=== PATIENT | male | born 1955 | race Two or more races ===

== ENCOUNTER → 2016-06-03 | Outpatient (REF) | payer OTHER ==
[2016-06-03 18:58] LABS: MEAN CORPUSCULAR HEMOGLOBIN 31.3 pg (27.0-33.0); MEAN CORPUSCULAR HGB CONC 34.6 g/dl (32.0-36.5); MEAN CORPUSCULAR VOLUME 90.5 fl (80.0-96.0); RED CELL DISTRIBUTION WIDTH 12.1 % (11.5-14.5); WHITE BLOOD COUNT 6.8 K/mm3 (4.0-10.0)
[2016-06-03 19:05] LABS: ALBUMIN 4.2 GM/DL (3.2-5.2); ALBUMIN/GLOBULIN RATIO 1.08 (1.00-1.93); ALKALINE PHOSPHATASE 113 U/L (45-117); ALT/SGPT 73 U/L (12-78); ANION GAP 7 MEQ/L (8-16); AST/SGOT 37 U/L (15-37); BILIRUBIN,TOTAL 0.6 MG/DL (0.2-1.0); BLOOD UREA NITROGEN 17 MG/DL (7-18); CARBON DIOXIDE LEVEL 28 MEQ/L (21-32); CHLORIDE LEVEL 102 MEQ/L (98-107); CREATININE FOR GFR 1.07 MG/DL (0.70-1.30); GLOMERULAR FILTRATION RATE > 60.0 (>56); GLUCOSE, FASTING 312 MG/DL (70-105); POTASSIUM SERUM 4.6 MEQ/L (3.5-5.1); SODIUM LEVEL 137 MEQ/L (136-145); TOTAL PROTEIN 8.1 GM/DL (6.4-8.2)
== END ==
LOC: M SFHCLERA 17:25
PROVIDERS: ATTEND Physician Assistant
DX: R35.0 Frequency of micturition (principal); E11.9 Type 2 diabetes mellitus without complications

== ENCOUNTER 2020-09-13 07:32 | Emergency (ER) | payer SELFPAY ==
[2020-09-13] MEDS ORDERED: METF10004 (07:45)
[2020-09-13 08:07] LABS: BASO % 0.4 % (0.0-1.0); EOS # 0.3 10^3/uL (0.0-0.5); EOS % 5.3 % (0.0-3.0); HEMOGLOBIN 13.5 g/dl (13.5-17.5); LYMPH # 1.7 10^3/uL (1.5-5.0); LYMPH % 32.1 % (24.0-44.0); MEAN CORPUSCULAR HEMOGLOBIN 31.3 pg (27.0-33.0); MEAN CORPUSCULAR HGB CONC 34.6 g/dl (32.0-36.5); MEAN CORPUSCULAR VOLUME 90.5 fl (80.0-96.0); MONO # 0.5 10^3/uL (0.0-0.8); MONO % 9.8 % (2.0-8.0); NEUTROPHILS # 2.8 10^3/uL (1.5-8.5); NEUTROPHILS % 51.6 % (36.0-66.0); PLATELET COUNT, AUTOMATED 189 10^3/uL (150-450); RED BLOOD COUNT 4.31 10^6/uL (4.30-6.10); WHITE BLOOD COUNT 5.3 10^3/uL (4.0-10.0)
[2020-09-13] MEDS ORDERED: GI COCKTAIL 50ML BTL(HYOSCYAMINE/MAALOX/LIDOCAINE VISCOUS)(1:3:1) PO ONE (08:20)
--- NOTE | 2020-09-13 08:34 | REP ---
INDICATION: CHEST PAIN. COMPARISON: None. TECHNIQUE: AP lateral seated, lordotic FINDINGS: Lungs are adequately inflated. There is no dense consolidation, definite effusion or parenchymal mass. Diaphragms are well seen bilaterally. Some minor fibrotic changes. Heart size not enlarged for AP portable lordotic technique. Some venous hypertension without pulmonary edema. No pneumothorax. The aorta is mildly tortuous. Airway intact. No widening of the mediastinum. Degenerative changes spine and shoulders. No free air. the the IMPRESSION: 1. No definite infiltrate, pleural effusion parenchymal mass. Some underlying fibrosis and there is pulmonary venous hypertension without interstitial edema. 2. No gross cardiomegaly. Some degenerative changes in the spine and shoulders. <Electronically signed by Pascual Lobato > 09/13/20 [id number]
[2020-09-13 08:55] LABS: ALBUMIN 3.5 GM/DL (3.2-5.2); ALT/SGPT 56 U/L (12-78); BILIRUBIN,DIRECT 0.3 MG/DL (0.0-0.2); BILIRUBIN,TOTAL 0.9 MG/DL (0.2-1.0); CK-MB VALUE MASS 1.4 NG/ML (<3.6); CPK CREATINE PHOSPHOKINASE 176 U/L (39-308); LIPASE 87 U/L (73-393); TROPONIN I < 0.02 NG/ML (< 0.10)
[2020-09-13] MEDS ORDERED: NITROGLYCERIN 0.4 MG SUBL TABLET SL STA (09:40)
[2020-09-13] MEDS ORDERED: NITROGLYCERIN 0.4 MG SUBL TABLET SL PRN (10:00)
[2020-09-13 15:03] LABS: CK-MB VALUE MASS 1.2 NG/ML (<3.6); CPK CREATINE PHOSPHOKINASE 161 U/L (39-308); MB/CK RELATIVE INDEX 0.75 (< OR =4); TROPONIN I < 0.02 NG/ML (< 0.10)
[2020-09-13 16:01] VITALS: BP 117/60
--- NOTE | 2020-09-13 20:34 | ECGEPIP ---
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
--- NOTE | 2020-09-13 20:40 | ECGEPIP ---
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
== END 2020-09-13 16:04 | disposition home or self-care (01) ==
LOC: M ED 07:32 → EDBD 07:32 → M ED 16:04
DX: I50.9 Heart failure, unspecified (principal); K21.9 Gastro-esophageal reflux disease without esophagitis; R07.89 Other chest pain; E11.9 Type 2 diabetes mellitus without complications; Z87.891 Personal history of nicotine dependence

== ENCOUNTER 2022-06-07 11:03 | Emergency (ER) | payer OTHER, SELFPAY ==
[~2022-06-07] VITALS: Ht 182.9 cm; Wt 111.2 kg
[~2022-06-07 11:03] MED LIST: METF10004
[2022-06-07 12:12] LABS: BASO % 0.5 % (0.0-1.0); EOS # 0.2 10^3/uL (0.0-0.5); EOS % 3.6 % (0.0-3.0); HEMATOCRIT 40.7 % (42.0-52.0); LYMPH # 1.5 10^3/uL (1.5-5.0); LYMPH % 36.7 % (24.0-44.0); MEAN CORPUSCULAR HEMOGLOBIN 31.2 pg (27.0-33.0); MEAN CORPUSCULAR HGB CONC 34.4 g/dl (32.0-36.5); MEAN CORPUSCULAR VOLUME 90.6 fl (80.0-96.0); MONO # 0.4 10^3/uL (0.0-0.8); MONO % 8.5 % (2.0-8.0); NEUTROPHILS # 2.1 10^3/uL (1.5-8.5); NEUTROPHILS % 50.2 % (36.0-66.0); PLATELET COUNT, AUTOMATED 228 10^3/uL (150-450); RED BLOOD COUNT 4.49 10^6/uL (4.30-6.10); WHITE BLOOD COUNT 4.1 10^3/uL (4.0-10.0)
[2022-06-07 12:23] LABS: INR 1.05; PARTIAL THROMBOPLASTIN TIME 29.5 SECONDS (24.8-34.2); PROTHROMBIN TIME 13.9 SECONDS (12.5-14.5)
[2022-06-07 12:40] LABS: RSV AMPLIFICATION NEGATIVE (NEGATIVE)
[2022-06-07 12:44] LABS: ALBUMIN 3.9 G/DL (3.2-5.2); ALKALINE PHOSPHATASE 59 U/L (46-116); ALT/SGPT 42 U/L (7.0-40); AST/SGOT 53 U/L (<34); BILIRUBIN,DIRECT 0.3 MG/DL (<0.4); BILIRUBIN,TOTAL 0.9 MG/DL (0.3-1.2); BLOOD UREA NITROGEN 14 MG/DL (9-23); CALCIUM LEVEL 8.5 MG/DL (8.3-10.6); CARBON DIOXIDE LEVEL 26 MMOL/L (20-31); CHLORIDE LEVEL 105 MMOL/L (98-107); CK-MB VALUE MASS 3.8 NG/ML (<3.6); CPK CREATINE PHOSPHOKINASE 456 U/L (46-171); GLOMERULAR FILTRATION RATE > 60.0 (>49); GLUCOSE, FASTING 166 MG/DL (74-106); LIPASE 33 U/L (12-53); MB/CK RELATIVE INDEX 0.83 (< OR =4); POTASSIUM SERUM 4.8 MMOL/L (3.5-5.1); SODIUM LEVEL 137 MMOL/L (136-145); THYROID STIMULATING HORMONE 3.243 uIU/ML (0.55-4.78); TOTAL PROTEIN 7.5 G/DL (5.7-8.2)
[2022-06-07 13:27] LABS: HEMOGLOBIN A1c 6.8 % (4.0-6.0)
[2022-06-07 13:49] LABS: CK-MB VALUE MASS 3.8 NG/ML (<3.6)
[2022-06-07 13:51] LABS: MB/CK RELATIVE INDEX 0.92 (< OR =4)
[2022-06-07 14:45] VITALS: BP 147/85
[2022-06-07] MEDS ORDERED: KETOROLAC 30 MG/ML 1ML VIAL IV ONE (14:45)
[2022-06-07] MEDS ORDERED: KETO10TAB PO (14:47)
== END 2022-06-07 15:04 | disposition home or self-care (01) ==
LOC: M ED 11:03
DX: R07.89 Other chest pain (principal); E11.9 Type 2 diabetes mellitus without complications; Z82.49 Family history of ischemic heart disease and other diseases of the circulatory system
CPT/HCPCS: 71045; 80048; 80076; 82550; 82553; 83036; 83690; 83880; 84443; 85025; 85379; 85610; 85730; 87631; 93005; 93041; 94760; 96374; 99285; J1885

== ENCOUNTER → 2023-05-01 | Outpatient (REF) | payer OTHER ==
[~2023-05-01] MED LIST changes: +KETO10TAB PO
[2023-05-01 19:36] LABS: BASO % 0.5 % (0.0-1.0); EOS # 0.2 10^3/uL (0.0-0.5); EOS % 2.5 % (0.0-3.0); HEMATOCRIT 42.6 % (42.0-52.0); HEMOGLOBIN 14.8 g/dl (13.5-17.5); LYMPH % 32.2 % (24.0-44.0); MEAN CORPUSCULAR HEMOGLOBIN 32.2 pg (27.0-33.0); MEAN CORPUSCULAR HGB CONC 34.7 g/dl (32.0-36.5); MEAN CORPUSCULAR VOLUME 92.6 fl (80.0-96.0); MONO # 0.6 10^3/uL (0.0-0.8); MONO % 8.7 % (2.0-8.0); NEUTROPHILS # 3.5 10^3/uL (1.5-8.5); NEUTROPHILS % 55.8 % (36.0-66.0); PLATELET COUNT, AUTOMATED 257 10^3/uL (150-450); WHITE BLOOD COUNT 6.3 10^3/uL (4.0-10.0)
[2023-05-01 20:08] LABS: ALBUMIN 4.2 G/DL (3.2-5.2); ALKALINE PHOSPHATASE 65 U/L (46-116); ALT/SGPT 56 U/L (7.0-40); AST/SGOT 22 U/L (<34); BILIRUBIN,TOTAL 0.9 MG/DL (0.3-1.2); BLOOD UREA NITROGEN 17 MG/DL (9-23); CALCIUM LEVEL 8.6 MG/DL (8.3-10.6); CARBON DIOXIDE LEVEL 28 MMOL/L (20-31); CHLORIDE LEVEL 101 MMOL/L (98-107); CREATININE FOR GFR 0.87 MG/DL (0.70-1.30); GLOMERULAR FILTRATION RATE > 60.0 (>49); GLUCOSE, FASTING 221 MG/DL (74-106); POTASSIUM SERUM 4.3 MMOL/L (3.5-5.1); SODIUM LEVEL 134 MMOL/L (136-145); TOTAL PROTEIN 7.4 G/DL (5.7-8.2)
[2023-05-01 20:17] LABS: HEMOGLOBIN A1c 8.7 % (4.0-6.0)
== END ==
LOC: M LAB REF 19:15
PROVIDERS: ATTEND Physician Assistant
DX: R10.84 Generalized abdominal pain (principal); R73.9 Hyperglycemia, unspecified

== ENCOUNTER 2025-01-12 05:23 | Emergency (ER) | payer MEDICAID, MEDICARE, OTHER ==
[~2025-01-12] VITALS: Ht 182.9 cm; Wt 104.7 kg
[2025-01-12 07:45] LABS: PLATELET COUNT, AUTOMATED 235 10^3/uL (150-450)
[2025-01-12] MEDS ORDERED: FARX1TAB3 PO (07:51)
[2025-01-12] MEDS ORDERED: NITR0.4S14 SL (07:51)
[2025-01-12] MEDS ORDERED: CARV3.12 PO (07:51)
[2025-01-12] MEDS ORDERED: ECOT81TA5 PO (07:51)
[2025-01-12] MEDS ORDERED: ATOR80TA59 PO (07:51)
[2025-01-12] MEDS ORDERED: CLOP75TA2 PO (07:51)
[2025-01-12] MEDS ORDERED: LISI2.5T8 PO (07:51)
[2025-01-12] MEDS ORDERED: HOME MED LIST COMPLETE! XX SCH (07:55)
[2025-01-12 08:15] LABS: ETHYL ALCOHOL (ETHANOL) 0.008 % (0.000-0.010)
[2025-01-12 08:17] LABS: ALT/SGPT 44 U/L (7.0-40); AST/SGOT 26 U/L (<34); CALCIUM LEVEL 8.5 MG/DL (8.3-10.6); CARBON DIOXIDE LEVEL 25 MMOL/L (20-31); CHLORIDE LEVEL 104 MMOL/L (98-107); CREATININE FOR GFR 0.75 MG/DL (0.70-1.30); GLOMERULAR FILTRATION RATE > 90.0 (>49); POTASSIUM SERUM 4.7 MMOL/L (3.5-5.1); SALICYLATE LEVEL < 3.0 MG/DL (<30); SODIUM LEVEL 140 MMOL/L (136-145)
[2025-01-12 08:25] LABS: BARBITURATES URINE NEGATIVE (NEGATIVE); COCAINE METABOLITE URINE NEGATIVE (NEGATIVE); METHADONE URINE NEGATIVE (NEGATIVE); OPIATES URINE NEGATIVE (NEGATIVE); PHENCYCLIDINE URINE NEGATIVE (NEGATIVE)
[2025-01-12 08:26] LABS: AMPHETAMINES LEVEL URINE NEGATIVE (NEGATIVE); BENZODIAZEPINES URINE NEGATIVE (NEGATIVE); CANNABINOIDS URINE NEGATIVE (NEGATIVE)
[2025-01-12 09:59] LABS: ESTIMATED AVERAGE GLUCOSE 169.0 MG/DL (60-110)
[2025-01-12] MEDS ORDERED: METF500T13 PO (14:24)
[2025-01-12 14:47] VITALS: BP 131/83; TEMP 98.1; O2SAT 94
== END 2025-01-12 14:42 | disposition home or self-care (01) ==
LOC: M ED 05:23
DX: E11.9 Type 2 diabetes mellitus without complications (principal); F43.20 Adjustment disorder, unspecified; Z79.82 Long term (current) use of aspirin; Z79.84 Long term (current) use of oral hypoglycemic drugs; Z79.899 Other long term (current) drug therapy